=== PATIENT | female | born 1940 ===

== ENCOUNTER → 2018-07-08 | Outpatient (CLI) | payer OTHER ==
[~2018-07-08] MED LIST: ASCO500 PO; ASPI81CH; ASPI81EC PO; B COMPLEX; BIOTIN; BROMFENAC 0.09%; Biotin10 MG PO; CALCIUM 1,0001 EACH PO; CALMAGZIN PO; CHOL10002; CYAN100 PO; DORZOPSO BOTHEYES; ERGO400 PO; ESTER C 500 MG; Fish Oil300 MG PO; HYDCHL12.5 PO; Hair, Skin & N1 EACH PO; MELA3; MELOTONIN PO; METRONIDAZOLE; METRONIDAZOLE 1%; MULVITMINF; OMEGA3; PROLENSA1.6 ML OP; ROXICODONE5 MG PO; UBID100; VITAMIN B; XARELTO10 MG PO
[2018-07-11 15:07] LABS: HPV 16 Negative (Negative); HPV 18 Negative (Negative); HPV OTHER HR TYPES Negative (Negative)
== END | disposition home or self-care (01) ==
LOC: LAB 12:23 → LAB SHORT 12:23
PROVIDERS: Obstetrics & Gynecology Gynecology
DX: Z12.4 Encounter for screening for malignant neoplasm of cervix (principal)
CPT/HCPCS: 87624; G0123

== ENCOUNTER → 2023-03-17 | Outpatient (CLI) | payer OTHER | LOC: LAB SHORT 15:15 → LAB 15:15 | DX: D04.71 Carcinoma in situ of skin of right lower limb, including hip (principal) | CPT/HCPCS: 88305 ==